=== PATIENT | female | born 1945 | race Caucasian/White ===

== ENCOUNTER 2016-08-16 21:59 | Emergency (ER) | payer MEDICARE ==
--- NOTE | 2016-08-16 22:38 | ED.PDOC ---
History of Present Illness - General Stated Complaint: Patient Time Seen by Provider: 08/16/16 22:35 Source: RN notes reviewed Exam Limitations: other - doa - History of Present Illness Initial Comments: 71 y/o female with reported history of COPD found on the car with daughter unresponsive lifeless-DOA.According to reports daughter driving her mom to be seen at [facility] in Timing/Duration: unsure Severity: severe Improving Factors: nothing Worsening Factors: nothing Review of Systems - Review of Systems Unable to Obtain Due To: condition, other - unresponsive,lifeless Past Medical History (General) - Patient Medical History Hx of COPD: Yes - as reported Physical Exam - Physical Exam General Appearance: Other - unresponsive Eye Exam: bilateral other - dilated non reactive Ears, Nose, Throat: other - doa patient Neck: other - Respiratory: other - no respirarory excursion Cardiovascular/Chest: other - absent pulses ,sausage canner flat line Peripheral Pulses: radial,right: 0 - absent pulses, radial,left: 0 - absent pulses, femoral,right: 0 - absent pulses, femoral,left: 0 - absent pulses Gastrointestinal/Abdominal: other - absent bowel sounds Neurologic: other - cold,clammy both pupils dilated non reactive to light Skin Exam: other - cold clammy Progress - Results/Orders Results/Orders: poker machine attendant notified and came to check patient.Pronounced at 2200H ;08/16/2016 Departure - Departure Clinical Impression: DOA ( on arrival) Time of Disposition: 23:10 Disposition:
[2016-08-16 23:33] VITALS: BP 0/0; TEMP 94.2; O2SAT 0
== END 2016-08-16 22:35 | disposition expired ==
LOC: ER 21:59
DX: J44.9 Chronic obstructive pulmonary disease, unspecified